=== PATIENT | female | born 1955 | race Caucasian/White ===

== ENCOUNTER 2020-05-06 18:11 | Inpatient (IN) ==
[2020-05-06] MEDS ORDERED: NS 0.9% 1000 ml BAG 1,000 ML IV ONE ×2 (18:27→21:36)
[2020-05-06] MEDS ORDERED: Piperacillin/Tazobac ADVAN 3.375 GM in NS 0.9% 100 ml BAG 100 ML IVPB ONE (18:27)
[2020-05-06 18:49] LABS: Hematocrit 47 % (35-47); Hemoglobin 15.7 g/dL (12.0-16.0); Mean Corpuscular HGB Conc 34 g/dL (31-36); Mean Corpuscular Hemoglobin 32 pg (27-31); Mean Corpuscular Volume 94 fL (80-97); Mean Platelet Volume 9.6 fL (7.4-10.4); Platelet Count 346 10^3/uL (150-450); Red Blood Count 4.99 10^6 /uL (3.70-4.87); Red Cell Distribution Width 14 % (10-15)
[2020-05-06 18:52] LABS: ABS Basophils 0.1 10^3/ul (0-0.2); ABS Eosinophils 0.3 10^3/ul (0-0.6); ABS Lymphocytes 0.3 10^3/ul (1.0-4.8); ABS Monocytes 0.7 10^3/ul (0-0.8); ABS Neutrophils 25.7 10^3/ul (1.5-7.7); Lymphocyte % 1.1 %
[2020-05-06 19:08] LABS: Albumin/Globulin Ratio 1.5 (1-3); C Reactive Protein 67.04 mg/L (<8.01); Calcium 9.1 mg/dL (8.6-10.3); EGFR African American 71.2 (>60); EGFR Non-African American 58.9 (>60); Globulin 2.7 g/dL (2-4); Total Bilirubin 0.6 mg/dL (0.2-1.0); Total Protein 6.7 g/dL (6.4-8.9)
[2020-05-06] MEDS ORDERED: Morphine 4 MG/ML VIAL (1 ml) IV ONE (19:08)
[2020-05-06] MEDS ORDERED: Metoclopramide 5 MG/ML VIAL (10 mg) IV ONE (19:08)
[2020-05-06] MEDS ORDERED: LACTATED RINGERS IV ONE (20:00)
[2020-05-06] MEDS ORDERED: Piperacillin/Tazobac ADVAN 3.375 GM in NS 0.9% 100 ml BAG 100 ML IV ONE (21:03)
[2020-05-06 21:43] LABS: Urine Appearance Cloudy; Urine Bilirubin Negative (Negative); Urine Blood Negative (Negative); Urine Color Yellow; Urine Glucose Negative (Negative); Urine Ketones Negative (Negative); Urine Nitrite Negative (Negative); Urine Protein Negative (Negative); Urine Specific Gravity 1.018 (1.010-1.030); Urine Urobilinogen Negative (Negative)
[2020-05-06 21:58] LABS: Activated Partial Thrombo Time 22.9 seconds (26.0-38.0); INR 1.16 (0.82-1.09)
[2020-05-06] MEDS ORDERED: Zosyn per Pharmacy NOTE FOLLOW UP SCH (22:00)
[2020-05-06] MEDS: Pantoprazole VIAL 40 MG VIAL IV SCH (22:09)
[2020-05-06] MEDS: Lactated Ringers 1000 ml BAG 1,000 ML IV SCH (22:24)
[2020-05-06] MEDS ORDERED: Dexamethasone IV 4 MG/ML VIAL 1 ml VIAL ONE (22:33)
[2020-05-06] MEDS ORDERED: Etomidate 20 mg/10 ml 2 MG/ML 10 ml VIAL ONE (22:34)
[2020-05-06] MEDS ORDERED: Rocuronium 50 mg VIAL 10 mg/ml 5 ml VIAL (50 mg) ONE (22:34)
[2020-05-06] MEDS ORDERED: Acetaminophen IV 1 GM/100ML 0 ML ONE (22:42)
[2020-05-06] MEDS ORDERED: Phenylephrine 40 mcg/mL 10mL (400mcg) SYRINGE ONE (22:42)
[2020-05-06] MEDS ORDERED: Dexmedetomidine 200 mcg/2 ml 2 ml VIAL (200 mcg) ONE (22:43)
[2020-05-07] MEDS ORDERED: Rocuronium 50 mg VIAL 10 mg/ml 5 ml VIAL (50 mg) ONE (01:55)
[2020-05-07] MEDS ORDERED: Propofol 10 mg/ml 100 ML BTL 100 ML ONE (02:59)
[2020-05-07] MEDS: fentaNYL 100 mcg/2 ml 50 MCG/ML VIAL IV SLOW PU PRN (03:15)
[2020-05-07] MEDS: Phenylephrine IV 50 MG in NS 0.9% 250 ml 245 ML IV SCH ×5 (03:26→22:24)
[2020-05-07] MEDS ORDERED: Midazolam 2 mg/2 ml VIAL 1 mg/ml 2 ml VIAL (2 mg) IV SLOW PU PRN (03:38)
[2020-05-07] MEDS: ZOSYN 3.375 GM Q8H per EXTENDED INFUSION IV SCH ×3 (03:42→20:29)
[2020-05-07] MEDS ORDERED: Propofol* 20 ML VIAL - FOR IV LINE PRIMING ONLY SCH (04:00)
[2020-05-07] MEDS ORDERED: Propofol 10 mg/ml 100 ML BTL 100 ML IV SCH (04:00)
[2020-05-07] MEDS ORDERED: fentaNYL INFUSION 50 MCG/ML 2,500 MCG/50 ML BAG IV SCH ×2 (04:00→11:31)
[2020-05-07 04:02] LABS: Hematocrit 42 % (35-47); Hemoglobin 13.7 g/dL (12.0-16.0); Mean Corpuscular HGB Conc 33 g/dL (31-36); Mean Corpuscular Hemoglobin 32 pg (27-31); Mean Corpuscular Volume 96 fL (80-97); Mean Platelet Volume 9.6 fL (7.4-10.4); Platelet Count 334 10^3/uL (150-450); Red Blood Count 4.33 10^6 /uL (3.70-4.87); Red Cell Distribution Width 14 % (10-15); White Blood Count 28.4 10^3/uL (3.5-10.8)
[2020-05-07 04:07] LABS: BUN/Creatinine Ratio 15.7 (8-20); Calcium 7.2 mg/dL (8.6-10.3); EGFR African American 57.1 (>60); EGFR Non-African American 47.2 (>60); Potassium 4.3 mmol/L (3.5-5.0)
[2020-05-07] MEDS ORDERED: NS 0.9% 1000 ml BAG 1,000 ML IV ONE (04:15)
[2020-05-07] MEDS ORDERED: Vasopressin 100 UNITS in D5W 250 ml BAG 245 ML IV SCH (05:00)
[2020-05-07] MEDS: Heparin 5000 UNITS/ML 1 mL VIAL SUBCUT SCH ×4 (05:07→22:54)
[2020-05-07] MEDS: Chlorhexidine MOUTHWASH 0.12% 15 ML UDC TOPICAL SCH ×6 (05:13→22:55)
[2020-05-07 06:02] LABS: ABS Basophils 0.1 10^3/ul (0-0.2); ABS Lymphocytes 0.6 10^3/ul (1.0-4.8); ABS Monocytes 0.5 10^3/ul (0-0.8); ABS Neutrophils 27.2 10^3/ul (1.5-7.7); Lymphocyte % 2.2 %
[2020-05-07] MEDS: Pantoprazole VIAL 40 MG VIAL IV SCH (07:42)
[2020-05-07 08:36] LABS: Hematocrit 41 % (35-47); Hemoglobin 13.4 g/dL (12.0-16.0); Mean Corpuscular HGB Conc 33 g/dL (31-36); Mean Corpuscular Hemoglobin 31 pg (27-31); Mean Corpuscular Volume 95 fL (80-97); Mean Platelet Volume 9.9 fL (7.4-10.4); Platelet Count 316 10^3/uL (150-450); Red Blood Count 4.31 10^6 /uL (3.70-4.87); Red Cell Distribution Width 14 % (10-15); White Blood Count 33.9 10^3/uL (3.5-10.8)
[2020-05-07 08:42] LABS: Albumin 2.4 g/dL (3.2-5.2); Albumin/Globulin Ratio 1.3 (1-3); BUN/Creatinine Ratio 15.2 (8-20); Calcium 7.3 mg/dL (8.6-10.3); EGFR African American 51.9 (>60); EGFR Non-African American 42.9 (>60); Globulin 1.8 g/dL (2-4); Potassium 4.3 mmol/L (3.5-5.0); Total Bilirubin 1.2 mg/dL (0.2-1.0); Total Protein 4.2 g/dL (6.4-8.9)
[2020-05-07 09:04] LABS: INR 1.72 (0.82-1.09)
[2020-05-07 10:29] LABS: ABS Basophils 0.2 10^3/ul (0-0.2); ABS Lymphocytes 0.8 10^3/ul (1.0-4.8); ABS Monocytes 0.4 10^3/ul (0-0.8); ABS Neutrophils 32.5 10^3/ul (1.5-7.7); Eosinophil % 0.1 %; Lymphocyte % 2.3 %
[2020-05-07] MEDS ORDERED: Acetaminophen IV 1 GM/100ML 1,000 MG/100 ML VIAL IVPB ONE (12:32)
[2020-05-07] MEDS ORDERED: Lorazepam PYXIS KEY PRN (12:47)
[2020-05-07] MEDS: Lactated Ringers 1000 ml BAG 1,000 ML IV SCH ×2 (14:03→20:29)
[2020-05-07 21:13] LABS: BUN/Creatinine Ratio 20.4 (8-20); EGFR African American 68.7 (>60); EGFR Non-African American 56.8 (>60); Magnesium 1.3 mg/dL (1.9-2.7)
[2020-05-07] MEDS ORDERED: Magnesium Sulfate 2 gm BAG 2 GM/50 ML BAG IVPB ONE (21:21)
[2020-05-08] MEDS: Phenylephrine IV 50 MG in NS 0.9% 250 ml 245 ML IV SCH ×3 (02:25→14:58)
[2020-05-08] MEDS: ZOSYN 3.375 GM Q8H per EXTENDED INFUSION IV SCH ×3 (03:19→20:20)
[2020-05-08] MEDS: Lactated Ringers 1000 ml BAG 1,000 ML IV SCH (03:19)
[2020-05-08] MEDS: Chlorhexidine MOUTHWASH 0.12% 15 ML UDC TOPICAL SCH ×5 (05:54→20:20)
[2020-05-08] MEDS: Heparin 5000 UNITS/ML 1 mL VIAL SUBCUT SCH ×3 (05:54→22:41)
[2020-05-08 05:57] LABS: Hematocrit 31 % (35-47); Hemoglobin 10.4 g/dL (12.0-16.0); Mean Corpuscular HGB Conc 34 g/dL (31-36); Mean Corpuscular Hemoglobin 32 pg (27-31); Mean Corpuscular Volume 93 fL (80-97); Mean Platelet Volume 9.6 fL (7.4-10.4); Platelet Count 182 10^3/uL (150-450); Red Blood Count 3.28 10^6 /uL (3.70-4.87); Red Cell Distribution Width 15 % (10-15); White Blood Count 15.3 10^3/uL (3.5-10.8)
[2020-05-08] MEDS: fentaNYL 100 mcg/2 ml 50 MCG/ML VIAL IV SLOW PU PRN (06:07)
[2020-05-08 06:09] LABS: BUN/Creatinine Ratio 19.8 (8-20); Calcium 7.2 mg/dL (8.6-10.3); EGFR African American 79.9 (>60); Phosphorus 2.3 mg/dL (2.5-5.0)
[2020-05-08 06:26] LABS: INR 1.53 (0.82-1.09)
[2020-05-08 08:45] LABS: Magnesium 1.9 mg/dL (1.9-2.7)
[2020-05-08] MEDS: Pantoprazole VIAL 40 MG VIAL IV SCH (09:22)
[2020-05-08] MEDS ORDERED: Furosemide 20 mg/2 ml IV VIAL IV SLOW PU ONE ×2 (09:42→17:51)
[2020-05-08] MEDS ORDERED: Acetaminophen IV 1 GM/100ML 1,000 MG/100 ML VIAL IVPB ONE ×2 (11:10→17:44)
[2020-05-08] MEDS ORDERED: Magnesium Sulfate 2 gm BAG 2 GM/50 ML BAG IVPB ONE (12:19)
[2020-05-08] MEDS ORDERED: Amiodarone 400 mg TAB PO SCH (21:00)
[2020-05-08 22:43] LABS: BUN/Creatinine Ratio 15.5 (8-20); Calcium 7.2 mg/dL (8.6-10.3); EGFR African American 99.7 (>60); EGFR Non-African American 82.4 (>60); Magnesium 2.2 mg/dL (1.9-2.7); Potassium 3.4 mmol/L (3.5-5.0)
[2020-05-08] MEDS: KCL 20 MEQ/100 ML IVPREMIX 20 MEQ/100 ML BAG IV SCH (22:54)
[2020-05-09] MEDS: KCL 20 MEQ/100 ML IVPREMIX 20 MEQ/100 ML BAG IV SCH (00:59)
[2020-05-09] MEDS: Chlorhexidine MOUTHWASH 0.12% 15 ML UDC TOPICAL SCH ×4 (04:37→12:01)
[2020-05-09] MEDS: ZOSYN 3.375 GM Q8H per EXTENDED INFUSION IV SCH ×3 (04:38→20:11)
[2020-05-09] MEDS: Heparin 5000 UNITS/ML 1 mL VIAL SUBCUT SCH ×3 (06:27→22:19)
[2020-05-09 07:00] LABS: BUN/Creatinine Ratio 15.9 (8-20); Calcium 7.2 mg/dL (8.6-10.3); EGFR African American 114.4 (>60); EGFR Non-African American 94.5 (>60); Magnesium 2.2 mg/dL (1.9-2.7); Potassium 3.7 mmol/L (3.5-5.0)
[2020-05-09 07:01] LABS: Hematocrit 25 % (35-47); Hemoglobin 8.6 g/dL (12.0-16.0); Mean Corpuscular HGB Conc 34 g/dL (31-36); Mean Corpuscular Hemoglobin 32 pg (27-31); Mean Corpuscular Volume 94 fL (80-97); Mean Platelet Volume 10.2 fL (7.4-10.4); Platelet Count 119 10^3/uL (150-450); Red Blood Count 2.68 10^6 /uL (3.70-4.87); Red Cell Distribution Width 14 % (10-15); White Blood Count 5.2 10^3/uL (3.5-10.8)
[2020-05-09] MEDS ORDERED: Furosemide 40 mg/4 ml IV VIAL IV SLOW PU ONE (07:02)
[2020-05-09] MEDS: Pantoprazole VIAL 40 MG VIAL IV SCH (07:52)
[2020-05-09] MEDS ORDERED: Potassium Chloride IV 20 MEQ in Lactated Ringers 1000 ml BAG 1,000 ML IVPB SCH ×2 (09:00→09:30)
[2020-05-09] MEDS ORDERED: KCL 20 MEQ/100 ML IVPREMIX 20 MEQ/100 ML BAG IV ONE (10:00)
[2020-05-09] MEDS: fentaNYL 100 mcg/2 ml 50 MCG/ML VIAL IV SLOW PU PRN ×2 (16:19→20:27)
[2020-05-09] MEDS: LORazepam 2 mg VIAL 1 ml IV PUSH PRN (22:33)
[2020-05-09] MEDS ORDERED: Acetaminophen IV 1 GM/100ML 100 ML IVPB ONE (22:50)
[2020-05-10] MEDS: HYDROmorphone 0.5 MG/0.5 ML SYRINGE IV SLOW PU PRN ×3 (01:27→22:32)
[2020-05-10] MEDS: ZOSYN 3.375 GM Q8H per EXTENDED INFUSION IV SCH ×4 (03:53→20:15)
[2020-05-10] MEDS: Heparin 5000 UNITS/ML 1 mL VIAL SUBCUT SCH ×3 (05:10→22:31)
[2020-05-10 05:29] LABS: Hematocrit 25 % (35-47); Hemoglobin 8.4 g/dL (12.0-16.0); Mean Corpuscular HGB Conc 34 g/dL (31-36); Mean Corpuscular Hemoglobin 32 pg (27-31); Mean Corpuscular Volume 94 fL (80-97); Platelet Count 137 10^3/uL (150-450); Red Blood Count 2.63 10^6 /uL (3.70-4.87); Red Cell Distribution Width 14 % (10-15); White Blood Count 4.8 10^3/uL (3.5-10.8)
[2020-05-10 05:45] LABS: BUN/Creatinine Ratio 22.2 (8-20); Calcium 7.6 mg/dL (8.6-10.3); EGFR African American 136.7 (>60); Magnesium 2.1 mg/dL (1.9-2.7); Potassium 3.7 mmol/L (3.5-5.0)
[2020-05-10] MEDS ORDERED: KCL 10 MEQ/50 ML IVPREMIX 10 MEQ/50 ML BAG IV ONE (06:00)
[2020-05-10] MEDS: Pantoprazole VIAL 40 MG VIAL IV SCH (10:07)
[2020-05-10] MEDS ORDERED: Nystatin SUSPENSION 100,000 UNITS/ML UDC PO ONE (14:05)
[2020-05-10] MEDS: LORazepam 2 mg VIAL 1 ml IV PUSH PRN (22:31)
[2020-05-11] MEDS: HYDROmorphone 0.5 MG/0.5 ML SYRINGE IV SLOW PU PRN ×2 (03:56→09:28)
[2020-05-11] MEDS: ZOSYN 3.375 GM Q8H per EXTENDED INFUSION IV SCH ×3 (03:57→20:03)
[2020-05-11] MEDS: Heparin 5000 UNITS/ML 1 mL VIAL SUBCUT SCH ×3 (06:00→21:50)
[2020-05-11 06:09] LABS: Hematocrit 25 % (35-47); Hemoglobin 8.4 g/dL (12.0-16.0); Mean Corpuscular HGB Conc 34 g/dL (31-36); Mean Corpuscular Hemoglobin 32 pg (27-31); Mean Corpuscular Volume 94 fL (80-97); Mean Platelet Volume 8.9 fL (7.4-10.4); Platelet Count 160 10^3/uL (150-450); Red Blood Count 2.61 10^6 /uL (3.70-4.87); Red Cell Distribution Width 14 % (10-15); White Blood Count 2.4 10^3/uL (3.5-10.8)
[2020-05-11 06:37] LABS: BUN/Creatinine Ratio 18.9 (8-20); Calcium 7.9 mg/dL (8.6-10.3); EGFR African American 139.7 (>60); EGFR Non-African American 115.4 (>60); Potassium 3.6 mmol/L (3.5-5.0)
[2020-05-11] MEDS: Pantoprazole VIAL 40 MG VIAL IV SCH (09:14)
[2020-05-11] MEDS ORDERED: Iohexol 300 (CONTRAST) 10 ML SDV IV ONE (10:35)
[2020-05-11] MEDS: NS 0.9% w/ 20 Meq KCL 1000 ml 1,000 ML IV SCH (10:39)
[2020-05-11] MEDS: LORazepam 2 mg VIAL 1 ml IV PUSH PRN (22:34)
[2020-05-12] MEDS: HYDROmorphone 0.5 MG/0.5 ML SYRINGE IV SLOW PU PRN ×2 (00:23→12:55)
[2020-05-12] MEDS: ZOSYN 3.375 GM Q8H per EXTENDED INFUSION IV SCH ×3 (04:17→20:25)
[2020-05-12] MEDS: Heparin 5000 UNITS/ML 1 mL VIAL SUBCUT SCH ×3 (06:01→21:46)
[2020-05-12 06:57] LABS: Hematocrit 24 % (35-47); Hemoglobin 8.4 g/dL (12.0-16.0); Mean Corpuscular HGB Conc 35 g/dL (31-36); Mean Corpuscular Hemoglobin 33 pg (27-31); Mean Corpuscular Volume 94 fL (80-97); Mean Platelet Volume 9.6 fL (7.4-10.4); Platelet Count 190 10^3/uL (150-450); Red Blood Count 2.59 10^6 /uL (3.70-4.87); Red Cell Distribution Width 14 % (10-15); White Blood Count 3.7 10^3/uL (3.5-10.8)
[2020-05-12] MEDS: NS 0.9% w/ 20 Meq KCL 1000 ml 1,000 ML IV SCH (07:12)
[2020-05-12 08:16] LABS: ABS Lymphocytes 0.7 10^3/ul (1.0-4.8); ABS Monocytes 1.2 10^3/ul (0-0.8); ABS Neutrophils 1.8 10^3/ul (1.5-7.7); Eosinophil % 0.6 %; Lymphocyte % 18.7 %; Nucleated Red Blood Cells % 0.3
[2020-05-12] MEDS: Pantoprazole VIAL 40 MG VIAL IV SCH (10:07)
[2020-05-12] MEDS: Ondansetron 4 mg VIAL 2 MG/ML 2 ml VIAL IV PRN ×2 (12:52→16:06)
[2020-05-12] MEDS: LORazepam 2 mg VIAL 1 ml IV PUSH PRN (14:33)
[2020-05-12] MEDS ORDERED: Furosemide 40 mg/4 ml IV VIAL IV ONE (15:11)
[2020-05-12] MEDS: Metoprolol Tartrate 5 mg VIAL 5 ml VIAL (1 mg/ml) IV SCH ×2 (15:42→21:47)
[2020-05-13] MEDS: LORazepam 2 mg VIAL 1 ml IV PUSH PRN ×2 (01:02→23:21)
[2020-05-13] MEDS: Metoprolol Tartrate 5 mg VIAL 5 ml VIAL (1 mg/ml) IV SCH ×4 (04:08→23:21)
[2020-05-13] MEDS: ZOSYN 3.375 GM Q8H per EXTENDED INFUSION IV SCH ×3 (04:08→20:26)
[2020-05-13] MEDS: Heparin 5000 UNITS/ML 1 mL VIAL SUBCUT SCH ×3 (05:33→23:22)
[2020-05-13 06:23] LABS: Hematocrit 27 % (35-47); Hemoglobin 9.2 g/dL (12.0-16.0); Mean Corpuscular HGB Conc 34 g/dL (31-36); Mean Corpuscular Hemoglobin 31 pg (27-31); Mean Corpuscular Volume 93 fL (80-97); Mean Platelet Volume 9.7 fL (7.4-10.4); Platelet Count 281 10^3/uL (150-450); Red Blood Count 2.93 10^6 /uL (3.70-4.87); Red Cell Distribution Width 14 % (10-15); White Blood Count 20.9 10^3/uL (3.5-10.8)
[2020-05-13 06:42] LABS: BUN/Creatinine Ratio 14.3 (8-20); Calcium 7.8 mg/dL (8.6-10.3); EGFR African American 101.3 (>60); EGFR Non-African American 83.7 (>60); Potassium 3.1 mmol/L (3.5-5.0)
[2020-05-13] MEDS ORDERED: Potassium Chlor 20 meq TAB.ER PO ONE (08:07)
[2020-05-13] MEDS ORDERED: Alteplase (CATHFLO) 2 MG VIAL IV ONE (08:40)
[2020-05-13] MEDS: Pantoprazole VIAL 40 MG VIAL IV SCH (09:00)
[2020-05-13 09:05] LABS: ABS Basophils 0.1 10^3/ul (0-0.2); ABS Lymphocytes 1.5 10^3/ul (1.0-4.8); ABS Monocytes 2.9 10^3/ul (0-0.8); ABS Neutrophils 16.5 10^3/ul (1.5-7.7); ABS Nucleated RBC 0.1 10^3/ul; Eosinophil % 0.1 %; Lymphocyte % 7.1 %; Nucleated Red Blood Cells % 0.6
[2020-05-13] MEDS: HYDROmorphone 0.5 MG/0.5 ML SYRINGE IV SLOW PU PRN ×2 (11:57→23:22)
[2020-05-13] MEDS: Ondansetron 4 mg VIAL 2 MG/ML 2 ml VIAL IV PRN ×2 (17:27→23:21)
[2020-05-14] MEDS: HYDROmorphone 0.5 MG/0.5 ML SYRINGE IV SLOW PU PRN ×2 (04:49→21:06)
[2020-05-14] MEDS: Metoprolol Tartrate 5 mg VIAL 5 ml VIAL (1 mg/ml) IV SCH ×4 (04:49→23:06)
[2020-05-14] MEDS: Ondansetron 4 mg VIAL 2 MG/ML 2 ml VIAL IV PRN ×2 (04:49→16:56)
[2020-05-14] MEDS: Heparin 5000 UNITS/ML 1 mL VIAL SUBCUT SCH ×3 (04:49→23:05)
[2020-05-14] MEDS: ZOSYN 3.375 GM Q8H per EXTENDED INFUSION IV SCH ×3 (04:50→21:07)
[2020-05-14 05:14] LABS: Hematocrit 26 % (35-47); Hemoglobin 8.8 g/dL (12.0-16.0); Mean Corpuscular HGB Conc 34 g/dL (31-36); Mean Corpuscular Hemoglobin 32 pg (27-31); Mean Corpuscular Volume 94 fL (80-97); Mean Platelet Volume 9.2 fL (7.4-10.4); Platelet Count 314 10^3/uL (150-450); Red Blood Count 2.79 10^6 /uL (3.70-4.87); Red Cell Distribution Width 14 % (10-15); White Blood Count 50.6 10^3/uL (3.5-10.8)
[2020-05-14 05:29] LABS: BUN/Creatinine Ratio 12.9 (8-20); Calcium 7.8 mg/dL (8.6-10.3); EGFR African American 101.3 (>60); EGFR Non-African American 83.7 (>60); Magnesium 1.9 mg/dL (1.9-2.7)
[2020-05-14 06:27] LABS: ABS Basophils 0.1 10^3/ul (0-0.2); ABS Eosinophils 0.1 10^3/ul (0-0.6); ABS Lymphocytes 2.5 10^3/ul (1.0-4.8); ABS Monocytes 3.5 10^3/ul (0-0.8); ABS Neutrophils 44.4 10^3/ul (1.5-7.7); Eosinophil % 0.2 %; Nucleated Red Blood Cells % 0.1
[2020-05-14] MEDS ORDERED: Potassium Chlor 20 meq TAB.ER PO ONE (08:32)
[2020-05-14] MEDS: KCL 20 MEQ/100 ML IVPREMIX 20 MEQ/100 ML BAG IV SCH ×2 (09:11→11:51)
[2020-05-14] MEDS: Pantoprazole VIAL 40 MG VIAL IV SCH (09:11)
[2020-05-14 11:46] LABS: C Reactive Protein 163.04 mg/L (<8.01)
[2020-05-15] MEDS: Metoprolol Tartrate 5 mg VIAL 5 ml VIAL (1 mg/ml) IV SCH ×4 (04:14→23:40)
[2020-05-15] MEDS: ZOSYN 3.375 GM Q8H per EXTENDED INFUSION IV SCH (04:14)
[2020-05-15] MEDS: Heparin 5000 UNITS/ML 1 mL VIAL SUBCUT SCH ×3 (06:02→23:39)
[2020-05-15 07:18] LABS: Hematocrit 29 % (35-47); Hemoglobin 9.4 g/dL (12.0-16.0); Mean Corpuscular HGB Conc 33 g/dL (31-36); Mean Corpuscular Hemoglobin 31 pg (27-31); Mean Corpuscular Volume 94 fL (80-97); Mean Platelet Volume 8.9 fL (7.4-10.4); Platelet Count 284 10^3/uL (150-450); Red Blood Count 3.06 10^6 /uL (3.70-4.87); Red Cell Distribution Width 15 % (10-15); White Blood Count 53.5 10^3/uL (3.5-10.8)
[2020-05-15 07:33] LABS: BUN/Creatinine Ratio 12.5 (8-20); Calcium 7.9 mg/dL (8.6-10.3); EGFR African American 112.3 (>60); EGFR Non-African American 92.8 (>60); Potassium 3.3 mmol/L (3.5-5.0)
[2020-05-15] MEDS ORDERED: Magnesium Sulfate IV 1GM/100ML 1 GM/100 ML BAG IV ONE (07:38)
[2020-05-15] MEDS ORDERED: KCL 20 MEQ/100 ML IVPREMIX 20 MEQ/100 ML BAG IV ONE (07:39)
[2020-05-15 07:52] LABS: ABS Basophils 0.1 10^3/ul (0-0.2); ABS Eosinophils 0.1 10^3/ul (0-0.6); ABS Lymphocytes 2.2 10^3/ul (1.0-4.8); ABS Neutrophils 48.1 10^3/ul (1.5-7.7); ABS Nucleated RBC 1.1 10^3/ul; Eosinophil % 0.1 %; Lymphocyte % 4.1 %; Nucleated Red Blood Cells % 2.2
[2020-05-15] MEDS ORDERED: Vancomycin per Pharmacy 1 EA NOTE FOLLOW UP PRN (07:52)
[2020-05-15] MEDS ORDERED: Cefepime ADVAN 2 GM in NS 0.9% 50 ML 50 ML IVPB SCH (08:00)
[2020-05-15] MEDS ORDERED: Alteplase (CATHFLO) 2 MG VIAL IV ONE (08:17)
[2020-05-15] MEDS: Cefepime 2 GM in Dextrose 2 GM/50 ML BAG IV SCH ×2 (08:34→20:20)
[2020-05-15] MEDS ORDERED: Vancomycin 2,000 MG in NS 0.9% 500 ml BAG 500 ML IVPB ONE (09:00)
[2020-05-15] MEDS: Pantoprazole VIAL 40 MG VIAL IV SCH (09:28)
[2020-05-15] MEDS: Ondansetron 4 mg VIAL 2 MG/ML 2 ml VIAL IV PRN (10:59)
[2020-05-15] MEDS: Vancomycin 1,250 MG in NS 0.9% 250 ml 250 ML IVPB SCH (17:23)
[2020-05-16] MEDS: Vancomycin 1,250 MG in NS 0.9% 250 ml 250 ML IVPB SCH ×3 (01:43→17:54)
[2020-05-16] MEDS: Metoprolol Tartrate 5 mg VIAL 5 ml VIAL (1 mg/ml) IV SCH ×4 (04:31→22:14)
[2020-05-16] MEDS: Heparin 5000 UNITS/ML 1 mL VIAL SUBCUT SCH ×3 (05:47→22:14)
[2020-05-16] MEDS: Cefepime 2 GM in Dextrose 2 GM/50 ML BAG IV SCH ×2 (08:57→20:01)
[2020-05-16] MEDS: Pantoprazole VIAL 40 MG VIAL IV SCH (08:57)
[2020-05-16] MEDS: HYDROmorphone 0.5 MG/0.5 ML SYRINGE IV SLOW PU PRN ×2 (09:07→16:54)
[2020-05-16] MEDS ORDERED: Vancomycin Trough Check NOTE FOLLOW UP ONE (09:30)
[2020-05-16 10:27] LABS: EGFR African American 72.1 (>60); EGFR Non-African American 59.6 (>60); Vancomycin Trough 16.8 mcg/mL
[2020-05-16] MEDS ORDERED: Alteplase (CATHFLO) 2 MG VIAL IV ONE (11:31)
[2020-05-16] MEDS: metroNIDAZOLE IV 500 MG/100ML 500 MG/100 ML BAG IVPB SCH (22:13)
[2020-05-17] MEDS: HYDROmorphone 0.5 MG/0.5 ML SYRINGE IV SLOW PU PRN ×3 (01:48→13:43)
[2020-05-17] MEDS: Vancomycin 1,250 MG in NS 0.9% 250 ml 250 ML IVPB SCH ×2 (01:48→10:39)
[2020-05-17] MEDS: Metoprolol Tartrate 5 mg VIAL 5 ml VIAL (1 mg/ml) IV SCH ×2 (04:18→10:12)
[2020-05-17] MEDS: Heparin 5000 UNITS/ML 1 mL VIAL SUBCUT SCH (06:10)
[2020-05-17 06:53] LABS: BUN/Creatinine Ratio 10.2 (8-20); Calcium 7.9 mg/dL (8.6-10.3); EGFR African American 61.4 (>60); EGFR Non-African American 50.8 (>60); Potassium 3.6 mmol/L (3.5-5.0)
[2020-05-17 07:47] LABS: Polychromasia 1+
[2020-05-17 07:51] LABS: ABS Basophils 0.1 10^3/ul (0-0.2); ABS Eosinophils 0.1 10^3/ul (0-0.6); ABS Lymphocytes 1.6 10^3/ul (1.0-4.8); ABS Monocytes 2.4 10^3/ul (0-0.8); ABS Neutrophils 39.9 10^3/ul (1.5-7.7); ABS Nucleated RBC 0.1 10^3/ul; Eosinophil % 0.1 %; Hematocrit 28 % (35-47); Hemoglobin 9.5 g/dL (12.0-16.0); Lymphocyte % 3.6 %; Mean Corpuscular HGB Conc 33 g/dL (31-36); Mean Corpuscular Hemoglobin 31 pg (27-31); Mean Corpuscular Volume 93 fL (80-97); Nucleated Red Blood Cells % 0.1; Red Blood Count 3.04 10^6 /uL (3.70-4.87); Red Cell Distribution Width 15 % (10-15)
[2020-05-17] MEDS: Cefepime 2 GM in Dextrose 2 GM/50 ML BAG IV SCH ×2 (08:26→20:30)
[2020-05-17] MEDS: Pantoprazole VIAL 40 MG VIAL IV SCH (08:27)
[2020-05-17 09:29] LABS: ABS Basophils 0.2 10^3/ul (0-0.2); ABS Monocytes 1.9 10^3/ul (0-0.8); ABS Neutrophils 36.5 10^3/ul (1.5-7.7); ABS Nucleated RBC 0.2 10^3/ul; Hematocrit 26 % (35-47); Hemoglobin 8.6 g/dL (12.0-16.0); Lymphocyte % 2.5 %; Mean Corpuscular HGB Conc 33 g/dL (31-36); Mean Corpuscular Hemoglobin 31 pg (27-31); Mean Corpuscular Volume 93 fL (80-97); Mean Platelet Volume 7.1 fL (7.4-10.4); Nucleated Red Blood Cells % 0.4; Platelet Count 24 10^3/uL (150-450); Red Blood Count 2.83 10^6 /uL (3.70-4.87); Red Cell Distribution Width 15 % (10-15); White Blood Count 39.5 10^3/uL (3.5-10.8)
[2020-05-17] MEDS: metroNIDAZOLE IV 500 MG/100ML 500 MG/100 ML BAG IVPB SCH ×2 (10:00→21:57)
[2020-05-17 13:19] LABS: Activated Partial Thrombo Time 27.7 seconds (26.0-38.0); Fibrinogen 281.1 mg/dL (110.8-404.3); INR 1.16 (0.82-1.09)
[2020-05-17 14:27] LABS: Platelet Count, Citrated 8 10^3/ul (150-450)
[2020-05-17 16:46] LABS: Mean Platelet Volume 6.5 fL (7.4-10.4); Platelet Count 44 10^3/uL (150-450)
[2020-05-17] MEDS ORDERED: Argatroban 250 MG in NS 0.9% 250 ml 247.5 ML IV SCH (21:00)
[2020-05-17] MEDS: [UNRECOGNIZED DRUG - OTHER] IV SCH (23:05)
[2020-05-17] MEDS: NS 0.9% IV SCH (23:05)
[2020-05-17] MEDS: ARGATROBAN IV SCH (23:05)
[2020-05-17 23:35] LABS: Albumin 1.5 g/dL (3.2-5.2); Albumin/Globulin Ratio 0.9 (1-3); Globulin 1.6 g/dL (2-4); Indirect Bilirubin 0.3 mg/dL (0.3-1.0); Total Bilirubin 0.4 mg/dL (0.2-1.0); Total Protein 3.1 g/dL (6.4-8.9)
[2020-05-18 04:44] LABS: Activated Partial Thrombo Time 69.7 seconds (26.0-38.0); INR 2.72 (0.82-1.09)
[2020-05-18 05:08] LABS: Hematocrit 26 % (35-47); Hemoglobin 8.6 g/dL (12.0-16.0); Mean Corpuscular HGB Conc 33 g/dL (31-36); Mean Corpuscular Hemoglobin 31 pg (27-31); Mean Corpuscular Volume 93 fL (80-97); Platelet Count 15 10^3/uL (150-450); Red Blood Count 2.81 10^6 /uL (3.70-4.87); Red Cell Distribution Width 15 % (10-15); White Blood Count 36.2 10^3/uL (3.5-10.8)
[2020-05-18 05:16] LABS: Albumin 2.3 g/dL (3.2-5.2); Magnesium 1.9 mg/dL (1.9-2.7)
[2020-05-18 05:22] LABS: Albumin/Globulin Ratio 0.9 (1-3); Globulin 2.5 g/dL (2-4); Total Protein 4.8 g/dL (6.4-8.9)
[2020-05-18 05:23] LABS: BUN/Creatinine Ratio 10.9 (8-20); Calcium 7.4 mg/dL (8.6-10.3); EGFR African American 60.1 (>60); EGFR Non-African American 49.7 (>60); Potassium 3.1 mmol/L (3.5-5.0); Total Bilirubin 0.6 mg/dL (0.2-1.0)
[2020-05-18 05:43] LABS: Polychromasia 1+
[2020-05-18 05:44] LABS: ABS Basophils 0.2 10^3/ul (0-0.2); ABS Lymphocytes 1.1 10^3/ul (1.0-4.8); ABS Monocytes 1.9 10^3/ul (0-0.8); ABS Nucleated RBC 0.2 10^3/ul; Eosinophil % 0.1 %; Lymphocyte % 2.9 %; Nucleated Red Blood Cells % 0.4
[2020-05-18] MEDS: KCL 20 MEQ/100 ML IVPREMIX 20 MEQ/100 ML BAG IV SCH ×2 (07:50→09:59)
[2020-05-18] MEDS: Cefepime 2 GM in Dextrose 2 GM/50 ML BAG IV SCH ×2 (07:51→20:40)
[2020-05-18] MEDS: metroNIDAZOLE IV 500 MG/100ML 500 MG/100 ML BAG IVPB SCH ×2 (08:28→19:40)
[2020-05-18] MEDS ORDERED: Vancomycin Trough Check NOTE FOLLOW UP ONE (09:30)
[2020-05-18] MEDS: Pantoprazole VIAL 40 MG VIAL IV SCH (09:59)
[2020-05-18] MEDS: Saline NASAL SPRAY 0.65% BTL BOTH NARES PRN (10:15)
[2020-05-18] MEDS: HYDROmorphone 0.5 MG/0.5 ML SYRINGE IV SLOW PU PRN ×2 (15:53→22:21)
[2020-05-18 16:32] LABS: Platelet Count 20 10^3/uL (150-450)
[2020-05-18] MEDS: [UNRECOGNIZED DRUG - OTHER] IV SCH (18:07)
[2020-05-18] MEDS: NS 0.9% IV SCH (18:07)
[2020-05-18] MEDS: ARGATROBAN IV SCH (18:07)
[2020-05-19] MEDS: Ondansetron 4 mg VIAL 2 MG/ML 2 ml VIAL IV PRN (01:14)
[2020-05-19] MEDS: HYDROmorphone 0.5 MG/0.5 ML SYRINGE IV SLOW PU PRN ×2 (03:07→07:07)
[2020-05-19 04:55] LABS: Hematocrit 24 % (35-47); Mean Corpuscular HGB Conc 33 g/dL (31-36); Mean Corpuscular Hemoglobin 31 pg (27-31); Mean Corpuscular Volume 93 fL (80-97); Mean Platelet Volume 8.7 fL (7.4-10.4); Platelet Count 11 10^3/uL (150-450); Red Blood Count 2.59 10^6 /uL (3.70-4.87); Red Cell Distribution Width 15 % (10-15); White Blood Count 31.3 10^3/uL (3.5-10.8)
[2020-05-19 05:01] LABS: Albumin 2.3 g/dL (3.2-5.2); Albumin/Globulin Ratio 0.9 (1-3); BUN/Creatinine Ratio 11.5 (8-20); Calcium 7.4 mg/dL (8.6-10.3); EGFR African American 64.2 (>60); Globulin 2.7 g/dL (2-4); Magnesium 1.8 mg/dL (1.9-2.7); Potassium 3.4 mmol/L (3.5-5.0); Total Bilirubin 0.4 mg/dL (0.2-1.0)
[2020-05-19 05:28] LABS: Polychromasia 1+
[2020-05-19 05:29] LABS: ABS Basophils 0.1 10^3/ul (0-0.2); ABS Eosinophils 0.1 10^3/ul (0-0.6); ABS Lymphocytes 1.2 10^3/ul (1.0-4.8); ABS Monocytes 1.8 10^3/ul (0-0.8); ABS Neutrophils 28.1 10^3/ul (1.5-7.7); Eosinophil % 0.2 %; Lymphocyte % 3.9 %; Nucleated Red Blood Cells % 0.1
[2020-05-19] MEDS ORDERED: Potassium Chlor 20 meq TAB.ER PO ONE (05:32)
[2020-05-19] MEDS ORDERED: Magnesium Sulfate 2 gm BAG 2 GM/50 ML BAG IVPB ONE (05:33)
[2020-05-19 06:23] LABS: INR 2.64 (0.82-1.09)
[2020-05-19] MEDS: Cefepime 2 GM in Dextrose 2 GM/50 ML BAG IV SCH ×2 (07:07→19:03)
[2020-05-19] MEDS: metroNIDAZOLE IV 500 MG/100ML 500 MG/100 ML BAG IVPB SCH ×2 (09:06→19:47)
[2020-05-19] MEDS: Pantoprazole VIAL 40 MG VIAL IV SCH (09:06)
[2020-05-19] MEDS ORDERED: Metoprolol Tartrate 5 mg VIAL 5 ml VIAL (1 mg/ml) IV ONE (11:20)
[2020-05-19] MEDS: NS 0.9% IV SCH (17:00)
[2020-05-19] MEDS: ARGATROBAN IV SCH (17:00)
[2020-05-19] MEDS: [UNRECOGNIZED DRUG - OTHER] IV SCH (17:00)
[2020-05-19 18:48] LABS: Mean Platelet Volume 7.9 fL (7.4-10.4); Platelet Count 20 10^3/uL (150-450)
[2020-05-19 20:30] LABS: HIT ELISA 2.095 OD (<0.400); Heparin PF4 Ab Inhibition 100 %
[2020-05-20] MEDS: HYDROmorphone 0.5 MG/0.5 ML SYRINGE IV SLOW PU PRN (00:43)
[2020-05-20 05:20] LABS: Activated Partial Thrombo Time 62.4 seconds (26.0-38.0); INR 2.35 (0.82-1.09)
[2020-05-20 05:28] LABS: Albumin 2.2 g/dL (3.2-5.2); Albumin/Globulin Ratio 0.8 (1-3); BUN/Creatinine Ratio 13.8 (8-20); Calcium 7.3 mg/dL (8.6-10.3); EGFR African American 60.8 (>60); EGFR Non-African American 50.2 (>60); Globulin 2.7 g/dL (2-4); Total Bilirubin 0.4 mg/dL (0.2-1.0); Total Protein 4.9 g/dL (6.4-8.9)
[2020-05-20 05:32] LABS: Hematocrit 23 % (35-47); Hemoglobin 7.8 g/dL (12.0-16.0); Mean Corpuscular HGB Conc 34 g/dL (31-36); Mean Corpuscular Hemoglobin 32 pg (27-31); Mean Corpuscular Volume 93 fL (80-97); Mean Platelet Volume 9.6 fL (7.4-10.4); Platelet Count 10 10^3/uL (150-450); Red Blood Count 2.46 10^6 /uL (3.70-4.87); Red Cell Distribution Width 15 % (10-15); White Blood Count 25.5 10^3/uL (3.5-10.8)
[2020-05-20 06:00] LABS: Magnesium 2.1 mg/dL (1.9-2.7)
[2020-05-20] MEDS: Cefepime 2 GM in Dextrose 2 GM/50 ML BAG IV SCH (08:00)
[2020-05-20] MEDS: Pantoprazole VIAL 40 MG VIAL IV SCH (08:04)
[2020-05-20 08:05] LABS: Hematocrit 23 % (35-47); Hemoglobin 7.8 g/dL (12.0-16.0); Mean Corpuscular HGB Conc 34 g/dL (31-36); Mean Corpuscular Hemoglobin 31 pg (27-31); Mean Corpuscular Volume 93 fL (80-97); Mean Platelet Volume 7.9 fL (7.4-10.4); Platelet Count 20 10^3/uL (150-450); Red Blood Count 2.51 10^6 /uL (3.70-4.87); Red Cell Distribution Width 15 % (10-15); White Blood Count 31.7 10^3/uL (3.5-10.8)
[2020-05-20 08:06] LABS: ABS Basophils 0.2 10^3/ul (0-0.2); ABS Lymphocytes 1.3 10^3/ul (1.0-4.8); ABS Monocytes 1.7 10^3/ul (0-0.8); ABS Neutrophils 28.4 10^3/ul (1.5-7.7); Lymphocyte % 4.2 %
[2020-05-20] MEDS: metroNIDAZOLE IV 500 MG/100ML 500 MG/100 ML BAG IVPB SCH ×2 (09:11→21:17)
[2020-05-20] MEDS: [UNRECOGNIZED DRUG - OTHER] IV SCH (15:34)
[2020-05-20] MEDS: NS 0.9% IV SCH (15:34)
[2020-05-20] MEDS: ARGATROBAN IV SCH (15:34)
[2020-05-20 15:46] LABS: Mean Platelet Volume 9.2 fL (7.4-10.4); Platelet Count 31 10^3/uL (150-450)
[2020-05-20 21:03] LABS: Platelet Count 53 10^3/uL (150-450)
[2020-05-20] MEDS: Cefepime 2 GM in NS 0.9% 50 ML 50 ML IVPB SCH (21:04)
[2020-05-21 01:23] LABS: Mean Platelet Volume 8.2 fL (7.4-10.4); Platelet Count 53 10^3/uL (150-450)
[2020-05-21 04:50] LABS: Activated Partial Thrombo Time 52.8 seconds (26.0-38.0); INR 2.23 (0.82-1.09)
[2020-05-21 04:59] LABS: Hematocrit 18 % (35-47); Hemoglobin 5.9 g/dL (12.0-16.0); Mean Corpuscular HGB Conc 33 g/dL (31-36); Mean Corpuscular Hemoglobin 30 pg (27-31); Mean Corpuscular Volume 92 fL (80-97); Mean Platelet Volume 8.4 fL (7.4-10.4); Platelet Count 66 10^3/uL (150-450); Red Blood Count 1.95 10^6 /uL (3.70-4.87); Red Cell Distribution Width 15 % (10-15)
[2020-05-21 05:16] LABS: Albumin 2.2 g/dL (3.2-5.2); Albumin/Globulin Ratio 0.9 (1-3); BUN/Creatinine Ratio 15.7 (8-20); EGFR African American 65.6 (>60); EGFR Non-African American 54.2 (>60); Globulin 2.5 g/dL (2-4); Potassium 3.6 mmol/L (3.5-5.0); Total Bilirubin 0.5 mg/dL (0.2-1.0); Total Protein 4.7 g/dL (6.4-8.9)
[2020-05-21 05:40] LABS: Hematocrit 26 % (35-47); Hemoglobin 8.8 g/dL (12.0-16.0); Mean Corpuscular HGB Conc 33 g/dL (31-36); Mean Corpuscular Hemoglobin 31 pg (27-31); Mean Corpuscular Volume 93 fL (80-97); Mean Platelet Volume 8.1 fL (7.4-10.4); Platelet Count 60 10^3/uL (150-450); Red Blood Count 2.84 10^6 /uL (3.70-4.87); Red Cell Distribution Width 15 % (10-15); White Blood Count 19.9 10^3/uL (3.5-10.8)
[2020-05-21 07:07] LABS: ABS Basophils 0.1 10^3/ul (0-0.2); ABS Lymphocytes 1.4 10^3/ul (1.0-4.8); ABS Monocytes 1.4 10^3/ul (0-0.8); ABS Neutrophils 24.1 10^3/ul (1.5-7.7); Eosinophil % 0.1 %; Lymphocyte % 5.1 %
[2020-05-21 08:19] LABS: Magnesium 2.1 mg/dL (1.9-2.7)
[2020-05-21] MEDS: Cefepime 2 GM in NS 0.9% 50 ML 50 ML IVPB SCH ×2 (09:02→19:38)
[2020-05-21] MEDS: Pantoprazole VIAL 40 MG VIAL IV SCH (09:03)
[2020-05-21] MEDS: metroNIDAZOLE IV 500 MG/100ML 500 MG/100 ML BAG IVPB SCH ×2 (09:03→21:25)
[2020-05-21] MEDS: Metoprolol Tartrate 5 mg VIAL 5 ml VIAL (1 mg/ml) IV PRN ×2 (09:03→18:36)
[2020-05-21] MEDS ORDERED: Furosemide 100 mg/10 ml IV VIAL IV ONE (09:55)
[2020-05-21 11:51] LABS: ABS Basophils 0.1 10^3/ul (0-0.2); ABS Lymphocytes 0.9 10^3/ul (1.0-4.8); ABS Monocytes 1.5 10^3/ul (0-0.8); ABS Neutrophils 20.3 10^3/ul (1.5-7.7); Eosinophil % 0.1 %; Hematocrit 22 % (35-47); Hemoglobin 7.1 g/dL (12.0-16.0); Lymphocyte % 4.1 %; Mean Corpuscular HGB Conc 33 g/dL (31-36); Mean Corpuscular Hemoglobin 31 pg (27-31); Mean Corpuscular Volume 92 fL (80-97); Mean Platelet Volume 8.1 fL (7.4-10.4); Platelet Count 78 10^3/uL (150-450); Red Blood Count 2.33 10^6 /uL (3.70-4.87); Red Cell Distribution Width 15 % (10-15); White Blood Count 22.9 10^3/uL (3.5-10.8)
[2020-05-21] MEDS ORDERED: Metoprolol Tartrate 5 mg VIAL 5 ml VIAL (1 mg/ml) IV ONE (12:15)
[2020-05-21 12:21] LABS: Polychromasia 2+
[2020-05-21] MEDS ORDERED: Metoprolol Tartrate 5 mg VIAL 5 ml VIAL (1 mg/ml) ONE (12:49)
[2020-05-21] MEDS: [UNRECOGNIZED DRUG - OTHER] IV SCH (12:54)
[2020-05-21] MEDS: NS 0.9% IV SCH (12:54)
[2020-05-21] MEDS: ARGATROBAN IV SCH (12:54)
[2020-05-22 04:29] LABS: ABS Basophils 0.2 10^3/ul (0-0.2); ABS Lymphocytes 1.2 10^3/ul (1.0-4.8); ABS Monocytes 1.4 10^3/ul (0-0.8); ABS Neutrophils 13.7 10^3/ul (1.5-7.7); Eosinophil % 0.1 %; Hematocrit 21 % (35-47); Lymphocyte % 7.4 %; Mean Corpuscular HGB Conc 33 g/dL (31-36); Mean Corpuscular Hemoglobin 31 pg (27-31); Mean Corpuscular Volume 92 fL (80-97); Mean Platelet Volume 8.6 fL (7.4-10.4); Nucleated Red Blood Cells % 0.1; Platelet Count 40 10^3/uL (150-450); Red Blood Count 2.28 10^6 /uL (3.70-4.87); Red Cell Distribution Width 15 % (10-15); White Blood Count 16.6 10^3/uL (3.5-10.8)
[2020-05-22 04:34] LABS: BUN/Creatinine Ratio 17.3 (8-20); Calcium 7.4 mg/dL (8.6-10.3); EGFR African American 68.7 (>60); EGFR Non-African American 56.8 (>60); Potassium 3.6 mmol/L (3.5-5.0)
[2020-05-22] MEDS: Metoprolol Tartrate 5 mg VIAL 5 ml VIAL (1 mg/ml) IV PRN ×2 (05:47→18:30)
[2020-05-22 07:30] LABS: Polychromasia 1+
[2020-05-22] MEDS: Pantoprazole VIAL 40 MG VIAL IV SCH (07:51)
[2020-05-22] MEDS: Cefepime 2 GM in NS 0.9% 50 ML 50 ML IVPB SCH ×2 (07:51→19:31)
[2020-05-22] MEDS: metroNIDAZOLE IV 500 MG/100ML 500 MG/100 ML BAG IVPB SCH ×2 (07:54→21:13)
[2020-05-22] MEDS: Saline NASAL SPRAY 0.65% BTL BOTH NARES PRN (08:54)
[2020-05-22] MEDS: [UNRECOGNIZED DRUG - OTHER] IV SCH (10:15)
[2020-05-22] MEDS: ARGATROBAN IV SCH (10:15)
[2020-05-22] MEDS: NS 0.9% IV SCH (10:15)
[2020-05-22] MEDS ORDERED: Furosemide 40 mg/4 ml IV VIAL IV SLOW PU ONE (11:07)
[2020-05-23 04:52] LABS: ABS Basophils 0.2 10^3/ul (0-0.2); ABS Lymphocytes 1.2 10^3/ul (1.0-4.8); ABS Monocytes 1.4 10^3/ul (0-0.8); ABS Neutrophils 15.4 10^3/ul (1.5-7.7); Activated Partial Thrombo Time 53.1 seconds (26.0-38.0); Eosinophil % 0.1 %; Hematocrit 23 % (35-47); Hemoglobin 7.9 g/dL (12.0-16.0); INR 2.25 (0.82-1.09); Lymphocyte % 6.7 %; Mean Corpuscular HGB Conc 35 g/dL (31-36); Mean Corpuscular Hemoglobin 32 pg (27-31); Mean Corpuscular Volume 93 fL (80-97); Mean Platelet Volume 9.4 fL (7.4-10.4); Platelet Count 29 10^3/uL (150-450); Red Blood Count 2.44 10^6 /uL (3.70-4.87); Red Cell Distribution Width 15 % (10-15); White Blood Count 18.2 10^3/uL (3.5-10.8)
[2020-05-23 05:02] LABS: BUN/Creatinine Ratio 15.2 (8-20); Calcium 7.6 mg/dL (8.6-10.3); EGFR African American 63.4 (>60); EGFR Non-African American 52.4 (>60); Potassium 3.6 mmol/L (3.5-5.0)
[2020-05-23 05:27] LABS: Schistocytes 1+
[2020-05-23] MEDS: [UNRECOGNIZED DRUG - OTHER] IV SCH (05:31)
[2020-05-23] MEDS: NS 0.9% IV SCH (05:31)
[2020-05-23] MEDS: ARGATROBAN IV SCH (05:31)
[2020-05-23] MEDS: Pantoprazole VIAL 40 MG VIAL IV SCH (08:16)
[2020-05-23] MEDS: Cefepime 2 GM in NS 0.9% 50 ML 50 ML IVPB SCH (08:16)
[2020-05-23] MEDS: metroNIDAZOLE IV 500 MG/100ML 500 MG/100 ML BAG IVPB SCH (08:16)
[2020-05-23 10:01] LABS: C Reactive Protein 178.76 mg/L (<8.01)
[2020-05-23] MEDS: Saline NASAL SPRAY 0.65% BTL BOTH NARES PRN (10:11)
[2020-05-23] MEDS: Metoprolol Tartrate 5 mg VIAL 5 ml VIAL (1 mg/ml) IV PRN (10:12)
[2020-05-23] MEDS ORDERED: Furosemide 40 mg/4 ml IV VIAL IV SLOW PU ONE (11:34)
[2020-05-24 06:33] LABS: BUN/Creatinine Ratio 18.5 (8-20); Calcium 7.5 mg/dL (8.6-10.3); EGFR African American 73.9 (>60); EGFR Non-African American 61.1 (>60); Potassium 3.7 mmol/L (3.5-5.0)
[2020-05-24 07:26] LABS: Hematocrit 24 % (35-47); Hemoglobin 7.9 g/dL (12.0-16.0); Mean Corpuscular HGB Conc 33 g/dL (31-36); Mean Corpuscular Hemoglobin 31 pg (27-31); Mean Corpuscular Volume 93 fL (80-97); Platelet Count 30 10^3/uL (150-450); Red Blood Count 2.53 10^6 /uL (3.70-4.87); Red Cell Distribution Width 15 % (10-15); White Blood Count 15.1 10^3/uL (3.5-10.8)
[2020-05-24 07:33] LABS: ABS Basophils 0.2 10^3/ul (0-0.2); ABS Lymphocytes 1.2 10^3/ul (1.0-4.8); ABS Monocytes 1.6 10^3/ul (0-0.8); ABS Neutrophils 12.1 10^3/ul (1.5-7.7); Eosinophil % 0.1 %; Lymphocyte % 8.2 %
[2020-05-24 07:35] LABS: Polychromasia 1+
[2020-05-24] MEDS: Pantoprazole VIAL 40 MG VIAL IV SCH (08:20)
[2020-05-24 09:21] LABS: INR 2.47 (0.82-1.09)
[2020-05-24] MEDS: Metoprolol Tartrate 5 mg VIAL 5 ml VIAL (1 mg/ml) IV PRN (18:10)
[2020-05-24] MEDS ORDERED: NS 0.9% 250 ml 250 ML ONE (20:05)
[2020-05-24] MEDS: Saline NASAL SPRAY 0.65% BTL BOTH NARES PRN (20:09)
[2020-05-24] MEDS: NS 0.9% IV SCH (20:32)
[2020-05-24] MEDS: [UNRECOGNIZED DRUG - OTHER] IV SCH (20:32)
[2020-05-24] MEDS: ARGATROBAN IV SCH (20:32)
[2020-05-25 04:55] LABS: ABS Basophils 0.1 10^3/ul (0-0.2); ABS Lymphocytes 1.3 10^3/ul (1.0-4.8); ABS Monocytes 1.5 10^3/ul (0-0.8); ABS Neutrophils 11.5 10^3/ul (1.5-7.7); Eosinophil % 0.2 %; Hematocrit 23 % (35-47); Hemoglobin 7.8 g/dL (12.0-16.0); Lymphocyte % 8.9 %; Mean Corpuscular HGB Conc 34 g/dL (31-36); Mean Corpuscular Hemoglobin 32 pg (27-31); Mean Corpuscular Volume 94 fL (80-97); Mean Platelet Volume 9.4 fL (7.4-10.4); Platelet Count 40 10^3/uL (150-450); Red Blood Count 2.47 10^6 /uL (3.70-4.87); Red Cell Distribution Width 15 % (10-15); White Blood Count 14.5 10^3/uL (3.5-10.8)
[2020-05-25 05:11] LABS: Albumin 2.4 g/dL (3.2-5.2); Albumin/Globulin Ratio 0.7 (1-3); BUN/Creatinine Ratio 16.5 (8-20); Calcium 7.7 mg/dL (8.6-10.3); EGFR African American 69.5 (>60); EGFR Non-African American 57.5 (>60); Globulin 3.3 g/dL (2-4); Magnesium 1.9 mg/dL (1.9-2.7); Total Bilirubin 0.4 mg/dL (0.2-1.0); Total Protein 5.7 g/dL (6.4-8.9)
[2020-05-25 06:21] LABS: Activated Partial Thrombo Time 47.5 seconds (26.0-38.0); INR 1.93 (0.82-1.09)
[2020-05-25] MEDS: Pantoprazole VIAL 40 MG VIAL IV SCH (10:19)
[2020-05-25] MEDS ORDERED: Furosemide 40 mg/4 ml IV VIAL IV SLOW PU ONE (11:57)
[2020-05-25] MEDS: NS 0.9% IV SCH (15:25)
[2020-05-25] MEDS: [UNRECOGNIZED DRUG - OTHER] IV SCH (15:25)
[2020-05-25] MEDS: ARGATROBAN IV SCH (15:25)
[2020-05-25] MEDS: Ondansetron 4 mg VIAL 2 MG/ML 2 ml VIAL IV PRN (15:42)
[2020-05-25] MEDS ORDERED: Perflutren Lipid Microsphere 3 ML VIAL ONE (16:50)
[2020-05-25] MEDS: Furosemide 40 mg/4 ml IV VIAL IV SLOW PU SCH (20:12)
[2020-05-26 04:52] LABS: Albumin 2.2 g/dL (3.2-5.2); Albumin/Globulin Ratio 0.6 (1-3); Calcium 7.7 mg/dL (8.6-10.3); EGFR African American 72.1 (>60); EGFR Non-African American 59.6 (>60); Globulin 3.4 g/dL (2-4); Magnesium 1.7 mg/dL (1.9-2.7); Potassium 3.7 mmol/L (3.5-5.0); Total Bilirubin 0.4 mg/dL (0.2-1.0); Total Protein 5.6 g/dL (6.4-8.9)
[2020-05-26 04:53] LABS: Hematocrit 22 % (35-47); Hemoglobin 7.2 g/dL (12.0-16.0); Mean Corpuscular HGB Conc 33 g/dL (31-36); Mean Corpuscular Hemoglobin 31 pg (27-31); Mean Corpuscular Volume 92 fL (80-97); Mean Platelet Volume 8.9 fL (7.4-10.4); Platelet Count 43 10^3/uL (150-450); Red Blood Count 2.34 10^6 /uL (3.70-4.87); Red Cell Distribution Width 15 % (10-15); White Blood Count 11.8 10^3/uL (3.5-10.8)
[2020-05-26 07:00] LABS: ABS Basophils 0.1 10^3/ul (0-0.2); ABS Lymphocytes 1.2 10^3/ul (1.0-4.8); ABS Monocytes 1.5 10^3/ul (0-0.8); Eosinophil % 0.4 %; Lymphocyte % 10.2 %; Polychromasia 1+
[2020-05-26] MEDS: ARGATROBAN IV SCH (08:23)
[2020-05-26] MEDS: [UNRECOGNIZED DRUG - OTHER] IV SCH (08:23)
[2020-05-26] MEDS: NS 0.9% IV SCH (08:23)
[2020-05-26] MEDS: Pantoprazole VIAL 40 MG VIAL IV SCH (08:24)
[2020-05-26] MEDS: Furosemide 40 mg/4 ml IV VIAL IV SLOW PU SCH ×2 (08:25→18:01)
[2020-05-26] MEDS ORDERED: Magnesium Sulfate IV 3 GM in NS 0.9% 100 ml BAG 100 ML IVPB ONE (10:30)
[2020-05-26 15:32] LABS: Hematocrit 26 % (35-47); Hemoglobin 8.6 g/dL (12.0-16.0); Mean Corpuscular HGB Conc 33 g/dL (31-36); Mean Corpuscular Hemoglobin 30 pg (27-31); Mean Corpuscular Volume 90 fL (80-97); Mean Platelet Volume 8.7 fL (7.4-10.4); Platelet Count 54 10^3/uL (150-450); Red Blood Count 2.85 10^6 /uL (3.70-4.87); Red Cell Distribution Width 18 % (10-15); White Blood Count 12.7 10^3/uL (3.5-10.8)
[2020-05-26 16:35] LABS: ABS Basophils 0.1 10^3/ul (0-0.2); ABS Eosinophils 0.1 10^3/ul (0-0.6); ABS Lymphocytes 0.9 10^3/ul (1.0-4.8); ABS Monocytes 1.4 10^3/ul (0-0.8); ABS Neutrophils 10.2 10^3/ul (1.5-7.7); Eosinophil % 0.5 %; Lymphocyte % 7.3 %
[2020-05-27] MEDS: ARGATROBAN IV SCH (00:40)
[2020-05-27] MEDS: NS 0.9% IV SCH (00:40)
[2020-05-27] MEDS: [UNRECOGNIZED DRUG - OTHER] IV SCH (00:40)
[2020-05-27 04:01] LABS: Hematocrit 16 % (35-47); Hemoglobin 5.3 g/dL (12.0-16.0); Mean Corpuscular HGB Conc 33 g/dL (31-36); Mean Corpuscular Hemoglobin 30 pg (27-31); Mean Corpuscular Volume 89 fL (80-97); Mean Platelet Volume 8.6 fL (7.4-10.4); Platelet Count 64 10^3/uL (150-450); Red Cell Distribution Width 17 % (10-15); White Blood Count 13.7 10^3/uL (3.5-10.8)
[2020-05-27 05:01] LABS: Albumin 2.3 g/dL (3.2-5.2); Calcium 7.4 mg/dL (8.6-10.3); Potassium 3.7 mmol/L (3.5-5.0); Total Bilirubin 0.4 mg/dL (0.2-1.0)
[2020-05-27 05:07] LABS: Albumin/Globulin Ratio 0.8 (1-3); BUN/Creatinine Ratio 18.7 (8-20); EGFR African American 74.8 (>60); EGFR Non-African American 61.9 (>60); Total Protein 5.3 g/dL (6.4-8.9)
[2020-05-27 05:25] LABS: Polychromasia 1+
[2020-05-27 05:26] LABS: ABS Basophils 0.1 10^3/ul (0-0.2); ABS Eosinophils 0.1 10^3/ul (0-0.6); ABS Lymphocytes 1.4 10^3/ul (1.0-4.8); ABS Monocytes 1.8 10^3/ul (0-0.8); ABS Neutrophils 10.1 10^3/ul (1.5-7.7); Eosinophil % 0.8 %; Lymphocyte % 10.4 %
[2020-05-27] MEDS: Furosemide 40 mg/4 ml IV VIAL IV SLOW PU SCH ×2 (08:07→16:47)
[2020-05-27] MEDS: Pantoprazole VIAL 40 MG VIAL IV SCH (08:08)
[2020-05-27 10:25] LABS: Hematocrit 29 % (35-47); Hemoglobin 9.6 g/dL (12.0-16.0); Mean Corpuscular HGB Conc 34 g/dL (31-36); Mean Corpuscular Hemoglobin 30 pg (27-31); Mean Corpuscular Volume 89 fL (80-97); Mean Platelet Volume 8.1 fL (7.4-10.4); Platelet Count 59 10^3/uL (150-450); Red Blood Count 3.21 10^6 /uL (3.70-4.87); Red Cell Distribution Width 17 % (10-15); White Blood Count 11.1 10^3/uL (3.5-10.8)
[2020-05-27] MEDS: Metoprolol Tartrate 5 mg VIAL 5 ml VIAL (1 mg/ml) IV PRN (11:06)
[2020-05-27 11:37] LABS: ABS Basophils 0.2 10^3/ul (0-0.2); ABS Eosinophils 0.1 10^3/ul (0-0.6); ABS Monocytes 1.1 10^3/ul (0-0.8); ABS Neutrophils 8.8 10^3/ul (1.5-7.7); Eosinophil % 0.7 %; Lymphocyte % 8.6 %
[2020-05-27 15:06] LABS: Magnesium 2.2 mg/dL (1.9-2.7)
[2020-05-28 05:42] LABS: ABS Basophils 0.1 10^3/ul (0-0.2); ABS Eosinophils 0.2 10^3/ul (0-0.6); ABS Lymphocytes 1.1 10^3/ul (1.0-4.8); ABS Monocytes 1.3 10^3/ul (0-0.8); ABS Neutrophils 7.2 10^3/ul (1.5-7.7); Eosinophil % 1.7 %; Hematocrit 26 % (35-47); Hemoglobin 8.9 g/dL (12.0-16.0); Lymphocyte % 10.7 %; Mean Corpuscular HGB Conc 34 g/dL (31-36); Mean Corpuscular Hemoglobin 30 pg (27-31); Mean Corpuscular Volume 88 fL (80-97); Mean Platelet Volume 8.4 fL (7.4-10.4); Platelet Count 66 10^3/uL (150-450); Red Blood Count 2.96 10^6 /uL (3.70-4.87); Red Cell Distribution Width 17 % (10-15); White Blood Count 9.9 10^3/uL (3.5-10.8)
[2020-05-28 05:44] LABS: BUN/Creatinine Ratio 19.8 (8-20); EGFR African American 79.9 (>60); Magnesium 1.9 mg/dL (1.9-2.7); Potassium 3.6 mmol/L (3.5-5.0)
[2020-05-28] MEDS ORDERED: Magnesium Sulfate IV 1GM/100ML 1 GM/100 ML BAG IV ONE (06:59)
[2020-05-28] MEDS: Furosemide 40 mg/4 ml IV VIAL IV SLOW PU SCH ×2 (07:33→17:25)
[2020-05-28] MEDS: Pantoprazole VIAL 40 MG VIAL IV SCH (07:33)
[2020-05-28] MEDS: Argatroban 250 MG in NS 0.9% 250 ml 247.5 ML IV SCH (14:33)
[2020-05-29 04:02] LABS: Hematocrit 25 % (35-47); Hemoglobin 8.7 g/dL (12.0-16.0); Mean Corpuscular HGB Conc 34 g/dL (31-36); Mean Corpuscular Hemoglobin 30 pg (27-31); Mean Corpuscular Volume 88 fL (80-97); Mean Platelet Volume 7.8 fL (7.4-10.4); Platelet Count 86 10^3/uL (150-450); Red Cell Distribution Width 16 % (10-15); White Blood Count 9.1 10^3/uL (3.5-10.8)
[2020-05-29 04:15] LABS: BUN/Creatinine Ratio 20.5 (8-20); EGFR African American 83.2 (>60); EGFR Non-African American 68.8 (>60); Magnesium 1.9 mg/dL (1.9-2.7); Potassium 3.4 mmol/L (3.5-5.0)
[2020-05-29] MEDS: Argatroban 250 MG in NS 0.9% 250 ml 247.5 ML IV SCH ×2 (05:22→22:17)
[2020-05-29] MEDS: KCL 20 MEQ/100 ML IVPREMIX 20 MEQ/100 ML BAG IV SCH ×2 (05:45→08:27)
[2020-05-29 07:03] LABS: ABS Basophils 0.1 10^3/ul (0-0.2); ABS Eosinophils 0.2 10^3/ul (0-0.6); ABS Lymphocytes 1.1 10^3/ul (1.0-4.8); ABS Monocytes 1.3 10^3/ul (0-0.8); ABS Neutrophils 6.4 10^3/ul (1.5-7.7); Eosinophil % 2.1 %; Lymphocyte % 11.8 %
[2020-05-29] MEDS: Pantoprazole VIAL 40 MG VIAL IV SCH (08:27)
[2020-05-29] MEDS: Furosemide 40 mg/4 ml IV VIAL IV SLOW PU SCH ×2 (08:27→17:21)
[2020-05-29 16:50] LABS: Calcium 8.2 mg/dL (8.6-10.3); EGFR Non-African American 66.9 (>60); Potassium 3.9 mmol/L (3.5-5.0)
[2020-05-30 06:18] LABS: Hematocrit 27 % (35-47); Hemoglobin 9.1 g/dL (12.0-16.0); Mean Corpuscular HGB Conc 34 g/dL (31-36); Mean Corpuscular Hemoglobin 30 pg (27-31); Mean Corpuscular Volume 88 fL (80-97); Mean Platelet Volume 8.1 fL (7.4-10.4); Platelet Count 118 10^3/uL (150-450); Red Blood Count 3.01 10^6 /uL (3.70-4.87); Red Cell Distribution Width 16 % (10-15); White Blood Count 10.5 10^3/uL (3.5-10.8)
[2020-05-30 06:38] LABS: BUN/Creatinine Ratio 18.9 (8-20); Calcium 8.2 mg/dL (8.6-10.3); EGFR African American 75.8 (>60); EGFR Non-African American 62.6 (>60); Magnesium 1.7 mg/dL (1.9-2.7); Phosphorus 3.7 mg/dL (2.5-5.0); Potassium 3.8 mmol/L (3.5-5.0)
[2020-05-30 07:16] LABS: ABS Basophils 0.1 10^3/ul (0-0.2); ABS Eosinophils 0.2 10^3/ul (0-0.6); ABS Lymphocytes 1.1 10^3/ul (1.0-4.8); ABS Monocytes 1.5 10^3/ul (0-0.8); ABS Neutrophils 7.5 10^3/ul (1.5-7.7); Eosinophil % 2.3 %; Lymphocyte % 10.3 %
[2020-05-30] MEDS ORDERED: Magnesium Sulfate IV 3 GM in NS 0.9% 100 ml BAG 100 ML IVPB ONE (07:30)
[2020-05-30] MEDS: Furosemide 40 mg/4 ml IV VIAL IV SLOW PU SCH ×2 (08:45→17:29)
[2020-05-30 09:07] LABS: Free T4 1.47 ng/dL (0.61-1.12)
[2020-05-30 09:42] LABS: TSH Ultra Thyroid Stim Horm 4.8 mcIU/mL (0.34-5.60)
[2020-05-30] MEDS: Argatroban 250 MG in NS 0.9% 250 ml 247.5 ML IV SCH (15:19)
[2020-05-31 06:52] LABS: Hematocrit 26 % (35-47); Hemoglobin 8.9 g/dL (12.0-16.0); Mean Corpuscular HGB Conc 34 g/dL (31-36); Mean Corpuscular Hemoglobin 30 pg (27-31); Mean Corpuscular Volume 88 fL (80-97); Mean Platelet Volume 7.7 fL (7.4-10.4); Platelet Count 148 10^3/uL (150-450); Red Blood Count 2.99 10^6 /uL (3.70-4.87); Red Cell Distribution Width 16 % (10-15)
[2020-05-31 08:06] LABS: ABS Basophils 0.1 10^3/ul (0-0.2); ABS Eosinophils 0.2 10^3/ul (0-0.6); ABS Lymphocytes 0.9 10^3/ul (1.0-4.8); ABS Monocytes 1.4 10^3/ul (0-0.8); ABS Neutrophils 8.3 10^3/ul (1.5-7.7); Eosinophil % 2.3 %; Lymphocyte % 8.1 %
[2020-05-31 12:51] LABS: BUN/Creatinine Ratio 20.5 (8-20); Calcium 8.1 mg/dL (8.6-10.3); EGFR African American 83.2 (>60); EGFR Non-African American 68.8 (>60); Magnesium 1.9 mg/dL (1.9-2.7); Potassium 3.7 mmol/L (3.5-5.0)
[2020-06-01 06:06] LABS: Hematocrit 26 % (35-47); Hemoglobin 8.7 g/dL (12.0-16.0); Mean Corpuscular HGB Conc 33 g/dL (31-36); Mean Corpuscular Hemoglobin 29 pg (27-31); Mean Corpuscular Volume 88 fL (80-97); Platelet Count 181 10^3/uL (150-450); Red Blood Count 2.98 10^6 /uL (3.70-4.87); Red Cell Distribution Width 16 % (10-15)
[2020-06-01 07:25] LABS: ABS Basophils 0.1 10^3/ul (0-0.2); ABS Eosinophils 0.3 10^3/ul (0-0.6); ABS Lymphocytes 0.8 10^3/ul (1.0-4.8); ABS Monocytes 1.5 10^3/ul (0-0.8); ABS Neutrophils 9.2 10^3/ul (1.5-7.7); Eosinophil % 2.4 %; Nucleated Red Blood Cells % 0.1
[2020-06-01 11:53] VITALS: BP 144/79
== END 2020-06-01 16:30 | disposition home health service (06) | DRG 853 ==
LOC: ED 18:11 → ICU 20:58 → SSU 05-10 17:37 → ICU 05-17 21:03 → SSU 05-31 11:25
PROVIDERS: ADMIT Internal Medicine; ATTEND Internal Medicine

== ENCOUNTER 2023-01-20 21:33 | Inpatient (IN) ==
[2023-01-20 23:00] LABS: ABS Basophils 0.1 10^3/uL (0.0-0.1); ABS Eosinophils 0.4 10^3/uL (0.0-0.5); ABS Lymphocytes 1.6 10^3/uL (1.0-4.8); ABS Monocytes 1.3 10^3/uL (0.0-0.9); ABS Neutrophils 5.8 10^3/uL (1.5-7.6); ABS Nucleated RBC 0.12 10^3/ul; Eosinophil % 4.3 %; Hematocrit 20.9 % (35-45); Hemoglobin 7.3 g/dL (11.5-14.3); Lymphocyte % 17.2 %; Mean Corpuscular Hemoglobin 31.6 pg (27-33); Mean Corpuscular Volume 90.3 fL (80-97); Mean Platelet Volume 8.5 fL (7.5-11.2); Nucleated Red Blood Cells % 1.3 /100 WBC (0.0-0.4); Platelet Count 23 10^3/uL (150-450); Red Blood Count 2.31 10^6/uL (3.63-4.92); Red Cell Distribution Width 20.8 % (12-17); White Blood Count 9.2 10^3/uL (3.8-11.8)
[2023-01-20 23:07] LABS: Albumin/Globulin Ratio 1.2 (1-3); Calcium 8.2 mg/dL (8.6-10.3); Creatinine, Serum 0.9 mg/dL (0.51-0.95); Globulin 2.6 g/dL (2-4); Potassium 3.8 mmol/L (3.5-5.0); Total Bilirubin 1.3 mg/dL (0.2-1.0); Total Protein 5.6 g/dL (6.4-8.9); eGFR CKD-EPI 69.6 (>60)
[2023-01-20 23:26] LABS: Anisocytosis 2+; Polychromasia 2+
[2023-01-20 23:27] LABS: Macrocytosis 1+; Microcytosis 1+
[2023-01-20] MEDS ORDERED: Iohexol 350 (CONTRAST) 500 ML MDV IV ONE (23:28)
[2023-01-21] MEDS ORDERED: Droperidol 5 MG/2 ML 2 ML VIAL IV ONE (02:22)
[2023-01-21] MEDS ORDERED: Furosemide 40 mg/4 ml IV VIAL IV SLOW PU ONE (03:05)
[2023-01-21] MEDS ORDERED: Morphine 2 MG/ML SYRINGE IV PRN (03:20)
[2023-01-21] MEDS ORDERED: cefTRIAXone 1 gm/50 mL D5W 1 GM/50 ML BAG IV SCH (03:45)
[2023-01-21] MEDS ORDERED: Azithromycin 500 mg/250 mL NS IVPB ONE (04:00)
[2023-01-21 06:10] LABS: ABS Basophils 0.1 10^3/uL (0.0-0.1); ABS Eosinophils 0.4 10^3/uL (0.0-0.5); ABS Lymphocytes 1.5 10^3/uL (1.0-4.8); ABS Monocytes 1.4 10^3/uL (0.0-0.9); ABS Neutrophils 5.8 10^3/uL (1.5-7.6); ABS Nucleated RBC 0.13 10^3/ul; Eosinophil % 4.6 %; Hematocrit 20.7 % (35-45); Hemoglobin 7.3 g/dL (11.5-14.3); Lymphocyte % 16.2 %; Mean Corpuscular Hemoglobin 32.3 pg (27-33); Mean Corpuscular Hgb Conc 35.3 g/dL (31-36); Mean Corpuscular Volume 91.3 fL (80-97); Mean Platelet Volume 9.2 fL (7.5-11.2); Nucleated Red Blood Cells % 1.4 /100 WBC (0.0-0.4); Platelet Count 23 10^3/uL (150-450); Red Blood Count 2.27 10^6/uL (3.63-4.92); Red Cell Distribution Width 21.2 % (12-17); White Blood Count 9.3 10^3/uL (3.8-11.8)
[2023-01-21 06:13] LABS: Activated Partial Thrombo Time 25.2 seconds (26.0-38.0); INR 1.41 (0.88-1.18)
[2023-01-21 06:22] LABS: Albumin/Globulin Ratio 1.1 (1-3); Calcium 7.8 mg/dL (8.6-10.3); Creatinine, Serum 0.92 mg/dL (0.51-0.95); Direct Bilirubin 0.4 mg/dL (0.03-0.18); Globulin 2.7 g/dL (2-4); Magnesium 2.2 mg/dL (1.9-2.7); Potassium 3.8 mmol/L (3.5-5.0); Total Bilirubin 1.2 mg/dL (0.2-1.0); Total Protein 5.7 g/dL (6.4-8.9); eGFR CKD-EPI 67.8 (>60)
[2023-01-21 09:37] LABS: Urine Appearance Clear; Urine Bilirubin Negative (Negative); Urine Blood 1+ (Negative); Urine Color Straw; Urine Glucose Negative (Negative); Urine Ketones Negative (Negative); Urine Nitrite Negative (Negative); Urine Protein Negative (Negative); Urine Specific Gravity 1.009 (1.002-1.030); Urine Urobilinogen Negative (Negative)
[2023-01-21 09:40] LABS: Urine Bacteria Absent (Absent); Urine Red Blood Cell Trace(0-2/hpf) (Absent); Urine Squamous Epithelial Cell Present (Absent); Urine White Blood Cell Trace(0-5/hpf) (Absent)
[2023-01-21] MEDS ORDERED: Sulfur Hexaflouride MICROSPHR 25 MG VIAL ONE (10:41)
[2023-01-21 16:02] LABS: % Iron Saturation 97 % (15-55); .Transferrin 169 mg/dL (203-362); Iron 230 ug/dL (50-212); Total Iron Binding Capacity 237 mcg/dL (250-450); Unsaturated Iron Binding 7 ug/dL
[2023-01-22] MEDS ORDERED: cefTRIAXone 1 gm/50 mL D5W 1 GM/50 ML BAG IV SCH (04:00)
[2023-01-22] MEDS: cefTRIAXone ADVAN VIAL 1 GM in NS 0.9% 50 ML 50 ML IVPB SCH (05:42)
[2023-01-22 06:19] LABS: Hematocrit 19.8 % (35-45); Hemoglobin 6.9 g/dL (11.5-14.3); Mean Corpuscular Hemoglobin 31.9 pg (27-33); Mean Corpuscular Hgb Conc 34.8 g/dL (31-36); Mean Corpuscular Volume 91.6 fL (80-97); Mean Platelet Volume 9.3 fL (7.5-11.2); Platelet Count 19 10^3/uL (150-450); Red Blood Count 2.17 10^6/uL (3.63-4.92); Red Cell Distribution Width 21.5 % (12-17); White Blood Count 9.8 10^3/uL (3.8-11.8)
[2023-01-22 06:20] LABS: Albumin 2.9 g/dL (3.2-5.2); Albumin/Globulin Ratio 1.1 (1-3); Calcium 7.5 mg/dL (8.6-10.3); Creatinine, Serum 0.82 mg/dL (0.51-0.95); Globulin 2.6 g/dL (2-4); Magnesium 2.2 mg/dL (1.9-2.7); Potassium 3.8 mmol/L (3.5-5.0); Total Bilirubin 1.5 mg/dL (0.2-1.0); Total Protein 5.5 g/dL (6.4-8.9); eGFR CKD-EPI 77.9 (>60)
[2023-01-22 06:23] LABS: Anisocytosis 1+; Polychromasia 1+
[2023-01-22 06:24] LABS: ABS Basophils 0.2 10^3/uL (0.0-0.1); ABS Eosinophils 0.5 10^3/uL (0.0-0.5); ABS Lymphocytes 1.7 10^3/uL (1.0-4.8); ABS Monocytes 1.6 10^3/uL (0.0-0.9); ABS Neutrophils 5.9 10^3/uL (1.5-7.6); ABS Nucleated RBC 0.14 10^3/ul; Eosinophil % 4.8 %; Lymphocyte % 17.2 %; Nucleated Red Blood Cells % 1.4 /100 WBC (0.0-0.4)
[2023-01-22] MEDS: Azithromycin 250 MG in NS 0.9% 250 ml 250 ML IVPB SCH (06:38)
[2023-01-22] MEDS: Ondansetron 4 mg VIAL 2 MG/ML 2 ml VIAL IV PRN ×2 (06:44→15:22)
[2023-01-22] MEDS ORDERED: Calcium Carb (TUMS) 500 mg CHEW TAB PO PRN (10:40)
[2023-01-22] MEDS: Lidocaine PATCH 5% PATCH TRANSDERM SCH (11:17)
[2023-01-22 17:15] LABS: Hematocrit 23.3 % (35-45); Hemoglobin 8.1 g/dL (11.5-14.3)
[2023-01-23] MEDS: cefTRIAXone ADVAN VIAL 1 GM in NS 0.9% 50 ML 50 ML IVPB SCH (03:15)
[2023-01-23] MEDS: Azithromycin 250 MG in NS 0.9% 250 ml 250 ML IVPB SCH (04:05)
[2023-01-23] MEDS: Lidocaine PATCH 5% PATCH TRANSDERM SCH (08:58)
[2023-01-23] MEDS: Ondansetron 4 mg VIAL 2 MG/ML 2 ml VIAL IV PRN ×2 (08:59→15:55)
[2023-01-23 09:18] LABS: Hematocrit 21.2 % (35-45); Hemoglobin 7.4 g/dL (11.5-14.3); Mean Corpuscular Hemoglobin 30.8 pg (27-33); Mean Corpuscular Hgb Conc 34.9 g/dL (31-36); Mean Corpuscular Volume 88.4 fL (80-97); Mean Platelet Volume 8.9 fL (7.5-11.2); Platelet Count 20 10^3/uL (150-450); Red Cell Distribution Width 21.6 % (12-17); White Blood Count 7.8 10^3/uL (3.8-11.8)
[2023-01-23 09:30] LABS: Calcium 7.4 mg/dL (8.6-10.3); Creatinine, Serum 0.74 mg/dL (0.51-0.95); Magnesium 2.4 mg/dL (1.9-2.7); Potassium 3.8 mmol/L (3.5-5.0); eGFR CKD-EPI 88.1 (>60)
[2023-01-23 10:00] LABS: Acanthocytes 1+; Anisocytosis 2+; Basophilic Stippling 2+; Hypochromasia 2+; Microcytosis 1+; Polychromasia 3+; Spherocytes 1+; Stomatocytes 2+; Tear Drop Cells 1+
[2023-01-23 10:01] LABS: ABS Eosinophils 0.4 10^3/uL (0.0-0.5); ABS Lymphocytes 1.2 10^3/uL (1.0-4.8); ABS Monocytes 0.8 10^3/uL (0.0-0.9); ABS Neutrophils 5.3 10^3/uL (1.5-7.6); ABS Nucleated RBC 0.63 10^3/ul; Eosinophil % 4.8 %; Lymphocyte % 15.9 %
[2023-01-23] MEDS ORDERED: Magnesium Hydroxide LIQ 30 ML UDC PO PRN (15:54)
[2023-01-23] MEDS ORDERED: Senna TAB 8.6 mg TAB PO PRN (15:55)
[2023-01-24] MEDS: cefTRIAXone ADVAN VIAL 1 GM in NS 0.9% 50 ML 50 ML IVPB SCH (04:44)
[2023-01-24 04:52] LABS: Hematocrit 23.5 % (35-45); Hemoglobin 8.3 g/dL (11.5-14.3); Mean Corpuscular Hemoglobin 30.9 pg (27-33); Mean Corpuscular Hgb Conc 35.3 g/dL (31-36); Mean Corpuscular Volume 87.5 fL (80-97); Mean Platelet Volume 11.8 fL (7.5-11.2); Platelet Count 10 10^3/uL (150-450); Red Blood Count 2.69 10^6/uL (3.63-4.92); Red Cell Distribution Width 19.2 % (12-17); White Blood Count 8.5 10^3/uL (3.8-11.8)
[2023-01-24 05:02] LABS: Calcium 7.6 mg/dL (8.6-10.3); Creatinine, Serum 0.68 mg/dL (0.51-0.95); Potassium 3.7 mmol/L (3.5-5.0); eGFR CKD-EPI 94.8 (>60)
[2023-01-24] MEDS: Azithromycin 250 MG in NS 0.9% 250 ml 250 ML IVPB SCH (05:20)
[2023-01-24] MEDS ORDERED: Piperacillin/Tazobac 3.375 BAG 3.375 GM/100 ML BAG IV ONE (09:34)
[2023-01-24] MEDS ORDERED: Furosemide 20 mg/2 ml IV VIAL IV ONE (09:35)
[2023-01-24] MEDS: Lidocaine PATCH 5% PATCH TRANSDERM SCH (09:40)
[2023-01-24] MEDS ORDERED: Zosyn per Pharmacy NOTE FOLLOW UP SCH (10:00)
[2023-01-24] MEDS ORDERED: Polyethylene Glycol 3350 17 GM PACKET PO PRN (10:07)
[2023-01-24] MEDS: Ondansetron 4 mg VIAL 2 MG/ML 2 ml VIAL IV PRN (10:21)
[2023-01-24] MEDS: ZOSYN 3.375 GM Q8H per EXTENDED INFUSION IV SCH ×2 (15:03→22:08)
[2023-01-24 18:45] LABS: Hematocrit 23.3 % (35-45); Hemoglobin 8.2 g/dL (11.5-14.3); Mean Corpuscular Hemoglobin 30.3 pg (27-33); Mean Corpuscular Hgb Conc 35.2 g/dL (31-36); Mean Corpuscular Volume 86.1 fL (80-97); Mean Platelet Volume 10.2 fL (7.5-11.2); Platelet Count 12 10^3/uL (150-450); Red Blood Count 2.71 10^6/uL (3.63-4.92); Red Cell Distribution Width 20.2 % (12-17); White Blood Count 7.6 10^3/uL (3.8-11.8)
[2023-01-25] MEDS: Azithromycin 250 MG in NS 0.9% 250 ml 250 ML IVPB SCH (05:03)
[2023-01-25] MEDS: Ondansetron 4 mg VIAL 2 MG/ML 2 ml VIAL IV PRN (06:06)
[2023-01-25] MEDS: ZOSYN 3.375 GM Q8H per EXTENDED INFUSION IV SCH ×3 (06:10→22:06)
[2023-01-25] MEDS: Lidocaine PATCH 5% PATCH TRANSDERM SCH (08:00)
[2023-01-25] MEDS ORDERED: fentaNYL 100 mcg/2 ml 50 MCG/ML VIAL ONE ×2 (08:47→09:47)
[2023-01-25 11:36] LABS: Hematocrit 23.7 % (35-45); Hemoglobin 8.3 g/dL (11.5-14.3); Mean Corpuscular Hemoglobin 30.8 pg (27-33); Mean Corpuscular Volume 87.8 fL (80-97); Mean Platelet Volume 10.3 fL (7.5-11.2); Platelet Count 13 10^3/uL (150-450); Red Cell Distribution Width 20.2 % (12-17)
[2023-01-25 12:44] LABS: Anisocytosis 2+; Polychromasia 2+
[2023-01-25 12:53] LABS: White Blood Count 8.3 10^3/uL (3.8-11.8)
[2023-01-25 14:03] LABS: ABS Basophils 0.2 10^3/uL (0.0-0.1); ABS Eosinophils 0.6 10^3/uL (0.0-0.5); ABS Lymphocytes 1.6 10^3/uL (1.0-4.8); ABS Monocytes 1.2 10^3/uL (0.0-0.9); ABS Neutrophils 5.4 10^3/uL (1.5-7.6); Eosinophil % 7.1 %; Lymphocyte % 17.1 %
[2023-01-26] MEDS: Azithromycin 250 MG in NS 0.9% 250 ml 250 ML IVPB SCH (05:42)
[2023-01-26] MEDS: ZOSYN 3.375 GM Q8H per EXTENDED INFUSION IV SCH ×3 (07:07→23:00)
[2023-01-26] MEDS: Lidocaine PATCH 5% PATCH TRANSDERM SCH (09:35)
[2023-01-26 11:50] LABS: Hematocrit 22.1 % (35-45); Hemoglobin 7.5 g/dL (11.5-14.3); Mean Corpuscular Hemoglobin 29.8 pg (27-33); Mean Corpuscular Volume 87.6 fL (80-97); Mean Platelet Volume 10.2 fL (7.5-11.2); Platelet Count 14 10^3/uL (150-450); Red Blood Count 2.52 10^6/uL (3.63-4.92); Red Cell Distribution Width 19.8 % (12-17); White Blood Count 7.9 10^3/uL (3.8-11.8)
[2023-01-26 12:33] LABS: Anisocytosis 2+; Polychromasia 1+; Schistocytes 1+; Tear Drop Cells 1+
[2023-01-26 12:36] LABS: ABS Basophils 0.2 10^3/uL (0.0-0.1); ABS Eosinophils 0.6 10^3/uL (0.0-0.5); ABS Lymphocytes 1.6 10^3/uL (1.0-4.8); ABS Neutrophils 4.6 10^3/uL (1.5-7.6); ABS Nucleated RBC 0.72 10^3/ul; Lymphocyte % 19.8 %; Nucleated Red Blood Cells % 9.1 /100 WBC (0.0-0.4)
[2023-01-26] MEDS: Ondansetron 4 mg VIAL 2 MG/ML 2 ml VIAL IV PRN ×2 (14:28→20:57)
[2023-01-27] MEDS: ZOSYN 3.375 GM Q8H per EXTENDED INFUSION IV SCH ×3 (06:04→22:39)
[2023-01-27 07:21] LABS: Calcium 7.7 mg/dL (8.6-10.3); Potassium 3.8 mmol/L (3.5-5.0)
[2023-01-27] MEDS: Lidocaine PATCH 5% PATCH TRANSDERM SCH (07:25)
[2023-01-27 07:26] LABS: Creatinine, Serum 0.68 mg/dL (0.51-0.95); eGFR CKD-EPI 94.8 (>60)
[2023-01-27 07:54] LABS: Hematocrit 19.8 % (35-45); Mean Corpuscular Hemoglobin 31.2 pg (27-33); Mean Corpuscular Hgb Conc 35.4 g/dL (31-36); Mean Corpuscular Volume 88.1 fL (80-97); Mean Platelet Volume 10.2 fL (7.5-11.2); Platelet Count 13 10^3/uL (150-450); Red Blood Count 2.24 10^6/uL (3.63-4.92); Red Cell Distribution Width 19.8 % (12-17)
[2023-01-27 08:17] LABS: Anisocytosis 2+; Basophilic Stippling 1+; Schistocytes 1+
[2023-01-27 08:18] LABS: Polychromasia 1+
[2023-01-27 08:22] LABS: White Blood Count 7.5 10^3/uL (3.8-11.8)
[2023-01-27 08:25] LABS: ABS Basophils 0.2 10^3/uL (0.0-0.1); ABS Eosinophils 0.5 10^3/uL (0.0-0.5); ABS Lymphocytes 1.9 10^3/uL (1.0-4.8); ABS Monocytes 1.2 10^3/uL (0.0-0.9); ABS Neutrophils 4.6 10^3/uL (1.5-7.6); ABS Nucleated RBC 0.17 10^3/ul; Eosinophil % 6.1 %; Lymphocyte % 22.4 %
[2023-01-27 11:33] LABS: Albumin 2.5 g/dL (3.2-5.2); Direct Bilirubin 0.9 mg/dL (0.03-0.18); Indirect Bilirubin 1.3 mg/dL (0.3-1.0); Total Bilirubin 2.2 mg/dL (0.2-1.0)
[2023-01-27 11:39] LABS: Albumin/Globulin Ratio 1.1 (1-3); Globulin 2.2 g/dL (2-4); Total Protein 4.7 g/dL (6.4-8.9)
[2023-01-27] MEDS: Ondansetron 4 mg VIAL 2 MG/ML 2 ml VIAL IV PRN (13:02)
[2023-01-28] MEDS: ZOSYN 3.375 GM Q8H per EXTENDED INFUSION IV SCH ×3 (05:47→23:12)
[2023-01-28 06:05] LABS: Hematocrit 22.6 % (35-45); Mean Corpuscular Hemoglobin 29.7 pg (27-33); Mean Corpuscular Hgb Conc 35.5 g/dL (31-36); Mean Corpuscular Volume 83.6 fL (80-97); Platelet Count 14 10^3/uL (150-450); Red Cell Distribution Width 19.9 % (12-17)
[2023-01-28 06:31] LABS: Albumin 2.5 g/dL (3.2-5.2); Calcium 7.5 mg/dL (8.6-10.3); Potassium 3.9 mmol/L (3.5-5.0); Total Bilirubin 3.2 mg/dL (0.2-1.0)
[2023-01-28 06:36] LABS: Albumin/Globulin Ratio 1.1 (1-3); Creatinine, Serum 0.68 mg/dL (0.51-0.95); Globulin 2.2 g/dL (2-4); Total Protein 4.7 g/dL (6.4-8.9); eGFR CKD-EPI 94.8 (>60)
[2023-01-28 06:56] LABS: Anisocytosis 3+; Hypochromasia 2+; Polychromasia 2+
[2023-01-28 06:57] LABS: ABS Basophils 0.2 10^3/uL (0.0-0.1); ABS Eosinophils 0.6 10^3/uL (0.0-0.5); ABS Lymphocytes 1.6 10^3/uL (1.0-4.8); ABS Monocytes 1.1 10^3/uL (0.0-0.9); ABS Neutrophils 4.6 10^3/uL (1.5-7.6); ABS Nucleated RBC 0.14 10^3/ul; Eosinophil % 7.2 %; Nucleated Red Blood Cells % 1.8 /100 WBC (0.0-0.4)
[2023-01-28] MEDS: Ondansetron 4 mg VIAL 2 MG/ML 2 ml VIAL IV PRN (07:43)
[2023-01-28] MEDS: Lidocaine PATCH 5% PATCH TRANSDERM SCH (08:10)
[2023-01-28] MEDS ORDERED: Morphine 2 MG/ML SYRINGE IV PRN ×2 (10:24→10:26)
[2023-01-28] MEDS ORDERED: Iohexol 350 (CONTRAST) 500 ML MDV IV ONE (10:50)
[2023-01-29] MEDS: ZOSYN 3.375 GM Q8H per EXTENDED INFUSION IV SCH ×2 (06:17→15:09)
[2023-01-29 06:53] LABS: Hematocrit 21.9 % (35-45); Hemoglobin 7.7 g/dL (11.5-14.3); Mean Corpuscular Hemoglobin 30.2 pg (27-33); Mean Corpuscular Hgb Conc 35.3 g/dL (31-36); Mean Corpuscular Volume 85.4 fL (80-97); Mean Platelet Volume 11.5 fL (7.5-11.2); Platelet Count 15 10^3/uL (150-450); Red Blood Count 2.56 10^6/uL (3.63-4.92); Red Cell Distribution Width 20.2 % (12-17); White Blood Count 8.7 10^3/uL (3.8-11.8)
[2023-01-29 06:57] LABS: Albumin 2.6 g/dL (3.2-5.2); Calcium 7.6 mg/dL (8.6-10.3); Creatinine, Serum 0.75 mg/dL (0.51-0.95); Potassium 4.2 mmol/L (3.5-5.0); Total Protein 5.1 g/dL (6.4-8.9); eGFR CKD-EPI 86.7 (>60)
[2023-01-29 06:58] LABS: Globulin 2.5 g/dL (2-4); Total Bilirubin 4.3 mg/dL (0.2-1.0)
[2023-01-29] MEDS: Lidocaine PATCH 5% PATCH TRANSDERM SCH (08:07)
[2023-01-29 09:56] LABS: RBC Morphology Normal (Normal)
[2023-01-29 09:57] LABS: ABS Basophils 0.3 10^3/uL (0.0-0.1); ABS Eosinophils 0.6 10^3/uL (0.0-0.5); ABS Lymphocytes 1.6 10^3/uL (1.0-4.8); ABS Monocytes 1.3 10^3/uL (0.0-0.9); ABS Neutrophils 4.9 10^3/uL (1.5-7.6); ABS Nucleated RBC 0.12 10^3/ul; Eosinophil % 6.4 %; Lymphocyte % 18.3 %; Nucleated Red Blood Cells % 1.4 /100 WBC (0.0-0.4)
[2023-01-29] MEDS ORDERED: Ondansetron 4 mg VIAL 2 MG/ML 2 ml VIAL IV PRN (15:02)
[2023-01-30] MEDS: Lidocaine PATCH 5% PATCH TRANSDERM SCH (10:40)
[2023-01-31 05:08] VITALS: BP 132/81
[2023-01-31] MEDS: Lidocaine PATCH 5% PATCH TRANSDERM SCH (10:56)
[2023-02-04 16:07] LABS: BM Result Summary Normal
== END 2023-01-31 14:30 | disposition home or self-care (01) | DRG 871 ==
LOC: ED 21:33 → EDHOLD 21:33 → MED 01-21 21:08 → SUATTDRO 01-22 12:40
PROVIDERS: ADMIT Internal Medicine; ATTEND Internal Medicine